=== PATIENT | female | born 1965 ===

== ENCOUNTER 2017-08-11 07:39 | Emergency (ER) | payer OTHER ==
[2017-08-11] MEDS ORDERED: ASPIRIN PO ONE (07:58)
[2017-08-11 08:56] LABS: BUN/Creatinine Ratio 27; Blood Urea Nitrogen 30 mg/dL (7-17); Calcium 9.2 mg/dL (8.4-10.2); Hemolysis Index 18
[2017-08-11 09:02] LABS: Basophils % (Auto) 0.4 % (0.0-1.8); Eosinophils # (Auto) 0.1 K/mm3 (0.0-0.4); Eosinophils % (Auto) 1.8 % (0.0-4.3); Hematocrit 43.5 % (30.3-42.9); Hemoglobin 14.3 gm/dl (10.1-14.3); Lymphocytes # (Auto) 1.5 K/mm3 (1.2-5.4); Lymphocytes % (Auto) 23.2 % (13.4-35.0); Mean Corpuscular HGB Conc 33 % (30-34); Mean Corpuscular Hemoglobin 25 pg (28-32); Mean Corpuscular Volume 75 fl (79-97); Monocytes # (Auto) 0.6 K/mm3 (0.0-0.8); Monocytes % (Auto) 9.6 % (0.0-7.3); Platelet Count 175 K/mm3 (140-440); Red Blood Count 5.83 M/mm3 (3.65-5.03); Red Cell Distribution Width 15.1 % (13.2-15.2)
--- NOTE | 2017-08-11 10:47 | Emergency Department Report ---
ED Chest Pain HPI - General Chief Complaint: Chest Pain Stated Complaint: SHORTNESS OF BREATH/CHEST PAIN Time Seen by Provider: 08/11/17 10:12 Source: patient Mode of arrival: Ambulatory Limitations: No Limitations - History of Present Illness Initial Comments: This is a pleasant 52-year-old Afro-[place] female who does not smoke, drinks socially, denies illicit drug use and reports having chest pain that started around 6:30 this morning described as sharp she also admits to nausea. She has a history of 3 myocardial infarctions in the past, the most recent being in 2011. She also has a pacemaker that was placed in 2011 as well. She has a history of hypertension. She states that the chest pain radiates into her left arm. She also admits to shortness of breath which began this morning. She denies headache vomiting diarrhea abdominal pain or other symptoms at this time. 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 -: days(s) (1) Onset: during rest Pain Location: substernal, other (radiation to left arm) Pain Radiation: LUE Severity: moderate Severity scale (0 -10): 9 Quality: sharp Consistency: intermittent Improves With: nothing Worsens With: nothing re: nausea, dyspnea. denies: vomting Other Symptoms: denies: cough, fever, syncope, rash Treatments Prior to Arrival: none - Related Data Home Medications Medication Instructions Recorded Confirmed Last Taken Aspirin [Adult Low Dose Aspirin EC] 81 mg PO DAILY 08/11/17 08/11/17 Unknown Atorvastatin Calcium [Lipitor] 40 mg PO DAILY 08/11/17 08/11/17 Unknown Carvedilol [Coreg] 25 mg PO TID 08/11/17 08/11/17 Unknown Furosemide [Lasix TAB] 40 mg PO QDAY PRN 08/11/17 08/11/17 Unknown Lisinopril [Zestril] 40 mg PO QDAY 08/11/17 08/11/17 Unknown Trazodone HCl 50 mg PO HS PRN 08/11/17 08/11/17 Unknown hydrALAZINE [Apresoline] 25 mg PO TID 08/11/17 08/11/17 Unknown Allergies Allergy/AdvReac Type Severity Reaction Status Date / Time No Known Allergies Allergy Verified 08/11/17 10:20 Heart Score - HEART Score History: Moderately suspicious EKG: Non-specific Age: 45-65 Risk factors: > 3 risk factors or hx of atherosclerotic disease Troponin: < normal limit HEART Score: 5 ED Review of Systems ROS: Stated complaint: SHORTNESS OF BREATH/CHEST PAIN Other details as noted in HPI Constitutional: no symptoms reported Eyes: as per HPI ENT: as per HPI Respiratory: see HPI, shortness of breath Cardiovascular: chest pain Endocrine: see HPI Gastrointestinal: as per HPI Genitourinary: as per HPI Musculoskeletal: as per HPI Skin: as per HPI Neurological: as per HPI Psychiatric: as per HPI Hematological/Lymphatic: as per HPI ED Past Medical Hx - Past Medical History Hx Hypertension: Yes Hx Heart Attack/AMI: Yes (X3) - Surgical History Hx Coronary Stent: Yes Hx Pacemaker: Yes - Social History Smoking Status: Never Smoker Substance Use Type: Alcohol - Medications Home Medications: Home Medications Medication Instructions Recorded Confirmed Last Taken Type Aspirin [Adult Low Dose Aspirin EC] 81 mg PO DAILY 08/11/17 08/11/17 Unknown History Atorvastatin Calcium [Lipitor] 40 mg PO DAILY 08/11/17 08/11/17 Unknown History Carvedilol [Coreg] 25 mg PO TID 08/11/17 08/11/17 Unknown History Furosemide [Lasix TAB] 40 mg PO QDAY PRN 08/11/17 08/11/17 Unknown History Lisinopril [Zestril] 40 mg PO QDAY 08/11/17 08/11/17 Unknown History Trazodone HCl 50 mg PO HS PRN 08/11/17 08/11/17 Unknown History hydrALAZINE [Apresoline] 25 mg PO TID 08/11/17 08/11/17 Unknown History ED Physical Exam - General Limitations: No Limitations General appearance: alert, in no apparent distress - Head Head exam: Present: atraumatic, normocephalic - Eye Eye exam: Present: normal appearance, PERRL, EOMI - ENT ENT exam: Present: normal exam - Neck Neck exam: Present: normal inspection - Respiratory Respiratory exam: Present: normal lung sounds bilaterally. Absent: respiratory distress, wheezes, rales, rhonchi - Cardiovascular Cardiovascular Exam: Present: regular rate, normal rhythm, other (there is no tenderness to palpation of the anterior thorax.) - GI/Abdominal GI/Abdominal exam: Present: soft, normal bowel sounds. Absent: distended, tenderness - Rectal Rectal exam: Present: deferred - Extremities Exam Extremities exam: Present: normal inspection, full ROM. Absent: pedal edema - Back Exam Back exam: Present: normal inspection ED Course Vital Signs 08/11/17 08/11/17 08/11/17 07:55 08:37 08:46 Temperature 98.6 F Pulse Rate 93 H 85 Respiratory 18 14 Rate Blood Pressure 198/141 200/140 197/126 O2 Sat by Pulse 98 97 Oximetry 08/11/17 08/11/17 08/11/17 08:53 09:00 09:30 Temperature Pulse Rate 81 78 Respiratory 16 18 18 Rate Blood Pressure 179/119 170/110 O2 Sat by Pulse 97 96 95 Oximetry 08/11/17 08/11/17 08/11/17 12:12 12:30 12:40 Temperature Pulse Rate Respiratory 14 Rate Blood Pressure 193/118 193/127 193/117 O2 Sat by Pulse 96 97 Oximetry 08/11/17 08/11/17 08/11/17 12:41 13:11 13:30 Temperature Pulse Rate 95 H Respiratory 16 16 21 Rate Blood Pressure 174/101 O2 Sat by Pulse 98 Oximetry 08/11/17 14:00 Temperature Pulse Rate 77 Respiratory 16 Rate Blood Pressure 119/76 O2 Sat by Pulse Oximetry - Reevaluation(s) Reevaluation #1: 08/11/17 15:10 I discussed the case with Dr. DOE. Dr. Ashby has accepted at [place] ( [facility]). They will send an ambulance to get the patient, and we will transfer the patient there for further care. 08/11/17 15:25 ED Medical Decision Making - Lab Data Result diagrams: 08/11/17 08:17 08/11/17 08:17 Critical care attestation.: If time is entered above; I have spent that time in minutes in the direct care of this critically ill patient, excluding procedure time. ED Disposition Clinical Impression: Hypertensive emergency Chest pain Qualifiers: Chest pain type: unspecified Qualified Code(s): R07.9 - Chest pain, unspecified Disposition: [id number] ANOTHER TYPE HLTHCARE Is pt being admited?: No Does the pt Need Aspirin: Yes Condition: Stable Instructions: Chest Pain (ED), Hypertension (ED) Referrals: PRIMARY CARE,MD [Primary Care Provider] - 3-5 Days
--- NOTE | 2017-08-11 11:29 | XRay Report ---
CHEST XRAY, 2 VIEWS: History: Chest pain. Findings: Borderline to mild cardiomegaly. A single lead pacemaker device terminates in the right ventricle. Pulmonary vessels are within normal limits. The lungs are clear and fully expanded. No infiltrate, pleural effusion or pneumothorax. Normal thoracic cage. IMPRESSION: Borderline to mild cardiomegaly. Lungs clear.
[2017-08-11] MEDS ORDERED: TORADOL IV ONE (12:38)
[2017-08-11] MEDS ORDERED: APRESOLINE IV ONE (12:38)
[2017-08-11] MEDS ORDERED: TORADOL ONE (12:38)
[2017-08-11] MEDS ORDERED: ZOFRAN ONE (13:50)
[2017-08-11] MEDS ORDERED: ZOFRAN IV ONE ×2 (14:07→15:09)
[2017-08-11] MEDS ORDERED: MORPHINE IV ONE (15:09)
[2017-08-11 15:56] VITALS: BP 143/91
== END 2017-08-11 16:50 | disposition other institution (70) ==
LOC: ED 07:39
DX: I10 Essential (primary) hypertension (principal); R07.89 Other chest pain; Z95.0 Presence of cardiac pacemaker; Z79.82 Long term (current) use of aspirin
CPT/HCPCS: 36415; 71046; 80048; 83880; 84484; 85025; 93005; 93010; 96374; 96375; 96376; 99283; J0360; J1885; J2405